=== PATIENT | male | born 1955 | race Two or more races ===

== ENCOUNTER 2018-03-06 08:51 | Day surgery (SDC) | payer BC ==
[2018-03-06] MEDS ORDERED: FENTAnyl 50 MCG/ML VIAL (11:27)
[2018-03-06] MEDS ORDERED: MIDAZOLAM 1 MG/ML 2 ML INJ (11:27)
[2018-03-06] MEDS ORDERED: PROPOFOL 20 ML (11:27)
== END 2018-03-06 13:32 | disposition home or self-care (01) ==
LOC: GIL 08:51
DX: Z12.11 Encounter for screening for malignant neoplasm of colon (principal); K64.4 Residual hemorrhoidal skin tags; I10 Essential (primary) hypertension
CPT/HCPCS: 45378

== ENCOUNTER 2018-05-22 16:53 | Inpatient (IN) | payer BC ==
[2018-05-22] MEDS ORDERED: ZOLPIDEM 5 MG TAB PO (18:30)
[2018-05-22] MEDS ORDERED: ONDANSETRON 4 MG TAB PO (18:30)
[2018-05-22] MEDS ORDERED: ALUMINUM HYDROXIDE 30 ML CUP PO (18:30)
[2018-05-22] MEDS ORDERED: ONDANSETRON 4 MG INJ IV (18:30)
[2018-05-22] MEDS ORDERED: CALCIUM CARBONATE 500 MG CHEW TAB PO (18:30)
[2018-05-22] MEDS ORDERED: SENNA TAB PO (18:30)
[2018-05-22] MEDS ORDERED: DOCUSATE SODIUM 100 MG CAP PO (18:30)
[2018-05-22] MEDS ORDERED: VANCOMYCIN IV PER PHARMACY XX (18:30)
[2018-05-22] MEDS ORDERED: VANCOMYCIN 750 MG in SOD CHLORIDE 0.9% 150 ML IVPB (18:30)
[2018-05-22] MEDS ORDERED: ACETAMINOPHEN 325 MG TAB PO (18:30)
[2018-05-22] MEDS ORDERED: HEPARIN 1000 UNITS/ML 10 ML INJ IV ×2 (19:00)
[2018-05-22 19:50] LABS: ADD MAN DIFF? NO
[2018-05-22 19:52] LABS: WHITE BLOOD COUNT 8.4 10^3/ul (4.8-10.8)
[2018-05-22 19:52] LABS: BASOPHIL # 0.1 10^3/ul (0.0-0.1); BASOPHILS % 0.8 % (0.0-2.0); EOSINOPHILS # 0.2 10^3/ul (0.0-0.5); EOSINOPHILS % 1.9 % (0.0-7.0); HEMATOCRIT 33.5 % (42.0-52.0); HEMOGLOBIN 11.3 g/dl (14.0-18.0); LYMPHOCYTES # 2.3 10^3/ul (0.8-2.9); MEAN CORPUSCULAR HEMOGLOBIN 30.4 pg (29.0-33.0); MEAN CORPUSCULAR HGB CONC 33.7 g/dl (32.0-37.0); MEAN CORPUSCULAR VOLUME 90.1 fl (82.0-101.0); MONOCYTE # 0.6 10^3/ul (0.3-0.9); MONOCYTES % 6.5 % (0.0-11.0); NEUTROPHIL # 5.2 10^3/ul (1.6-7.5); NEUTROPHILS % 61.3 % (39.0-77.0); PLATELET COUNT 522 10^3/UL (140-415); RED BLOOD COUNT 3.72 10^6/ul (4.70-6.10); RED CELL DISTRIBUTION WIDTH 13.2 % (11.5-14.5)
[2018-05-22 20:10] LABS: INR 1.07; PT RATIO 1.1
[2018-05-22 20:25] LABS: PARTIAL THROMBOPLASTIN TIME 101.8 Sec (25.0-35.0)
[2018-05-22] MEDS: HEPARIN 25000 UNITS/250 ML 250 ML IV (20:57)
[2018-05-22] MEDS: PIPER-TAZO 3.375 GM IV (PMX) 100 ML IVPB (21:20)
[2018-05-22] MEDS: FAMOTIDINE 20 MG INJ IV (21:20)
[2018-05-22] MEDS: DEXTROSE 5%-0.9% NACL 1,000 ML IV (21:21)
[2018-05-22] MEDS ORDERED: VANCOMYCIN 1 GM 250 ML IVPB (21:30)
[2018-05-22] MEDS: VANCOMYCIN 1 GM 250 ML IVPB (21:59)
[2018-05-23 03:29] LABS: ALANINE AMINOTRANSFERASE 88 IU/L (13-69); ALBUMIN 3.7 g/dl (3.3-4.9); ALBUMIN/GLOBULIN RATIO 0.94; ALKALINE PHOSPHATASE 170 IU/L (42-121); ANION GAP 15 (8-16); ASPARTATE AMINO TRANSFERASE 64 IU/L (15-46); BILIRUBIN,INDIRECT 0.7 mg/dl (0-1.1); BILIRUBIN,TOTAL 0.7 mg/dl (0.2-1.3); BLOOD UREA NITROGEN 4 mg/dl (7-20); CALCIUM 9.3 mg/dl (8.4-10.2); CARBON DIOXIDE 22 mmol/L (21-31); CHLORIDE 110 mmol/L (97-110); CREATININE 0.96 mg/dl (0.61-1.24); GLUCOSE 121 mg/dl (70-220); POTASSIUM 3.5 mmol/L (3.5-5.1); SODIUM 143 mmol/L (135-144); TOTAL PROTEIN 7.6 g/dl (6.1-8.1)
[2018-05-23 03:46] LABS: PARTIAL THROMBOPLASTIN TIME 86.4 Sec (25.0-35.0)
[2018-05-23] MEDS: DEXTROSE 5%-0.9% NACL 1,000 ML IV ×2 (04:53→14:30)
[2018-05-23] MEDS: PIPER-TAZO 3.375 GM IV (PMX) 100 ML IVPB ×3 (06:04→21:18)
[2018-05-23] MEDS: FAMOTIDINE 20 MG INJ IV ×2 (10:20→20:03)
[2018-05-23] MEDS: VANCOMYCIN 1 GM 250 ML IVPB ×2 (10:21→21:54)
[2018-05-23 11:11] LABS: PARTIAL THROMBOPLASTIN TIME 120.5 Sec (25.0-35.0)
[2018-05-23] MEDS: HEPARIN 25000 UNITS/250 ML 250 ML IV (11:51)
[2018-05-23 16:45] LABS: PARTIAL THROMBOPLASTIN TIME 79.3 Sec (25.0-35.0)
[2018-05-23] MEDS: morphine 2 MG INJ IV (20:03)
[2018-05-23 22:56] LABS: PARTIAL THROMBOPLASTIN TIME 93.8 Sec (25.0-35.0)
[2018-05-24] MEDS: DEXTROSE 5%-0.9% NACL 1,000 ML IV ×4 (00:30→20:22)
[2018-05-24] MEDS: PIPER-TAZO 3.375 GM IV (PMX) 100 ML IVPB ×3 (05:49→21:03)
[2018-05-24 07:28] LABS: ADD MAN DIFF? NO
[2018-05-24 07:34] LABS: WHITE BLOOD COUNT 6.8 10^3/ul (4.8-10.8)
[2018-05-24 07:34] LABS: BASOPHIL # 0.1 10^3/ul (0.0-0.1); BASOPHILS % 1.2 % (0.0-2.0); EOSINOPHILS # 0.2 10^3/ul (0.0-0.5); EOSINOPHILS % 2.5 % (0.0-7.0); HEMATOCRIT 32.6 % (42.0-52.0); HEMOGLOBIN 10.8 g/dl (14.0-18.0); LYMPHOCYTES # 1.8 10^3/ul (0.8-2.9); LYMPHOCYTES % 25.7 % (15.0-51.0); MEAN CORPUSCULAR HEMOGLOBIN 29.8 pg (29.0-33.0); MEAN CORPUSCULAR HGB CONC 33.1 g/dl (32.0-37.0); MEAN CORPUSCULAR VOLUME 89.8 fl (82.0-101.0); MONOCYTE # 0.5 10^3/ul (0.3-0.9); MONOCYTES % 7.6 % (0.0-11.0); NEUTROPHIL # 4.1 10^3/ul (1.6-7.5); NEUTROPHILS % 60.4 % (39.0-77.0); PLATELET COUNT 522 10^3/UL (140-415); RED BLOOD COUNT 3.63 10^6/ul (4.70-6.10); RED CELL DISTRIBUTION WIDTH 13.9 % (11.5-14.5)
[2018-05-24 07:50] LABS: PHOSPHORUS 3.7 mg/dl (2.5-4.9)
[2018-05-24 07:50] LABS: MAGNESIUM 2.2 mg/dl (1.7-2.5)
[2018-05-24 07:53] LABS: ALANINE AMINOTRANSFERASE 73 IU/L (13-69); ALBUMIN 3.3 g/dl (3.3-4.9); ALKALINE PHOSPHATASE 137 IU/L (42-121); AMYLASE 88 U/L (11-123); ASPARTATE AMINO TRANSFERASE 46 IU/L (15-46); BILIRUBIN,INDIRECT 0.6 mg/dl (0-1.1); BILIRUBIN,TOTAL 0.6 mg/dl (0.2-1.3); LIPASE 748 U/L (23-300); TOTAL PROTEIN 6.7 g/dl (6.1-8.1)
[2018-05-24 07:57] LABS: ALANINE AMINOTRANSFERASE 70 IU/L (13-69); ALBUMIN 3.4 g/dl (3.3-4.9); ALBUMIN/GLOBULIN RATIO 0.91; ALKALINE PHOSPHATASE 137 IU/L (42-121); ANION GAP 10 (8-16); ASPARTATE AMINO TRANSFERASE 48 IU/L (15-46); BILIRUBIN,INDIRECT 0.6 mg/dl (0-1.1); BILIRUBIN,TOTAL 0.6 mg/dl (0.2-1.3); BLOOD UREA NITROGEN 4 mg/dl (7-20); CALCIUM 8.9 mg/dl (8.4-10.2); CARBON DIOXIDE 24 mmol/L (21-31); CHLORIDE 113 mmol/L (97-110); CREATININE 1.17 mg/dl (0.61-1.24); GLUCOSE 132 mg/dl (70-220); POTASSIUM 3.4 mmol/L (3.5-5.1); SODIUM 144 mmol/L (135-144); TOTAL PROTEIN 7.1 g/dl (6.1-8.1)
[2018-05-24] MEDS: FAMOTIDINE 20 MG INJ IV ×2 (09:00→20:30)
[2018-05-24 09:58] LABS: VANCOMYCIN,TROUGH 13.3 ug/ml (10.0-20.0)
[2018-05-24] MEDS: POTASSIUM CHLORIDE 100 ML IVPB ×2 (12:15→15:16)
[2018-05-24] MEDS: VANCOMYCIN 1 GM 250 ML IVPB (12:15)
[2018-05-24 14:43] LABS: LACTIC ACID 2.4 mmol/L (0.5-2.0)
[2018-05-24 14:45] LABS: PARTIAL THROMBOPLASTIN TIME 56.1 Sec (25.0-35.0)
[2018-05-24] MEDS: HEPARIN 1000 UNITS/ML 10 ML INJ IV (15:17)
[2018-05-24] MEDS: HEPARIN 25000 UNITS/250 ML 250 ML IV ×2 (15:24→21:37)
[2018-05-24 19:33] LABS: PARTIAL THROMBOPLASTIN TIME 150.4 Sec (25.0-35.0)
[2018-05-24 20:43] LABS: PARTIAL THROMBOPLASTIN TIME 108.4 Sec (25.0-35.0)
[2018-05-25] MEDS: VANCOMYCIN 1 GM 250 ML IVPB ×2 (00:06→11:59)
[2018-05-25 04:59] LABS: ADD MAN DIFF? NO
[2018-05-25 05:02] LABS: WHITE BLOOD COUNT 7.4 10^3/ul (4.8-10.8)
[2018-05-25 05:02] LABS: BASOPHIL # 0.1 10^3/ul (0.0-0.1); BASOPHILS % 1.1 % (0.0-2.0); EOSINOPHILS # 0.2 10^3/ul (0.0-0.5); EOSINOPHILS % 2.8 % (0.0-7.0); HEMATOCRIT 30.4 % (42.0-52.0); HEMOGLOBIN 10.1 g/dl (14.0-18.0); LYMPHOCYTES % 26.4 % (15.0-51.0); MEAN CORPUSCULAR HEMOGLOBIN 30.1 pg (29.0-33.0); MEAN CORPUSCULAR HGB CONC 33.2 g/dl (32.0-37.0); MEAN CORPUSCULAR VOLUME 90.7 fl (82.0-101.0); MEAN PLATELET VOLUME 9.1 fl (7.4-10.4); MONOCYTE # 0.5 10^3/ul (0.3-0.9); MONOCYTES % 6.2 % (0.0-11.0); NEUTROPHIL # 4.6 10^3/ul (1.6-7.5); NEUTROPHILS % 62.3 % (39.0-77.0); PLATELET COUNT 523 10^3/UL (140-415); RED BLOOD COUNT 3.35 10^6/ul (4.70-6.10); RED CELL DISTRIBUTION WIDTH 13.9 % (11.5-14.5)
[2018-05-25 05:30] LABS: PARTIAL THROMBOPLASTIN TIME 49.8 Sec (25.0-35.0)
[2018-05-25 05:31] LABS: ANION GAP 10 (8-16); BLOOD UREA NITROGEN 5 mg/dl (7-20); CALCIUM 8.8 mg/dl (8.4-10.2); CARBON DIOXIDE 23 mmol/L (21-31); CHLORIDE 111 mmol/L (97-110); CREATININE 1.04 mg/dl (0.61-1.24); GLUCOSE 120 mg/dl (70-220); POTASSIUM 3.1 mmol/L (3.5-5.1); SODIUM 141 mmol/L (135-144)
[2018-05-25] MEDS: DEXTROSE 5%-0.9% NACL 1,000 ML IV ×3 (05:31→21:30)
[2018-05-25] MEDS: PIPER-TAZO 3.375 GM IV (PMX) 100 ML IVPB ×3 (05:32→21:24)
[2018-05-25 05:37] LABS: LACTIC ACID 0.8 mmol/L (0.5-2.0)
[2018-05-25] MEDS: HEPARIN 1000 UNITS/ML 10 ML INJ IV (06:25)
[2018-05-25] MEDS: HEPARIN 25000 UNITS/250 ML 250 ML IV ×2 (06:25→13:45)
[2018-05-25] MEDS: FAMOTIDINE 20 MG INJ IV ×2 (08:40→21:24)
[2018-05-25] MEDS: POTASSIUM CHLORIDE 100 ML IVPB ×2 (11:56→13:45)
[2018-05-25 13:23] LABS: PARTIAL THROMBOPLASTIN TIME 94.1 Sec (25.0-35.0)
[2018-05-25 19:43] LABS: PARTIAL THROMBOPLASTIN TIME 91.7 Sec (25.0-35.0)
[2018-05-26] MEDS: VANCOMYCIN 1 GM 250 ML IVPB ×2 (00:27→11:37)
[2018-05-26] MEDS: DEXTROSE 5%-0.9% NACL 1,000 ML IV ×3 (02:02→21:30)
[2018-05-26] MEDS: PIPER-TAZO 3.375 GM IV (PMX) 100 ML IVPB ×3 (05:16→21:29)
[2018-05-26] MEDS: FAMOTIDINE 20 MG INJ IV ×2 (08:01→21:21)
[2018-05-26 08:46] LABS: PARTIAL THROMBOPLASTIN TIME 76.7 Sec (25.0-35.0)
[2018-05-26 09:56] LABS: POTASSIUM 3.4 mmol/L (3.5-5.1)
[2018-05-26] MEDS ORDERED: POTASSIUM CHLORIDE 20 MEQ POWDER FOR ORAL SOLN PO (11:00)
[2018-05-26] MEDS: POTASSIUM CHLORIDE 100 ML IVPB (11:38)
[2018-05-27] MEDS: PIPER-TAZO 3.375 GM IV (PMX) 100 ML IVPB ×2 (05:53→14:18)
[2018-05-27] MEDS ORDERED: LIDOCAINE 2% (SDV) 5 ML INJ (07:00)
[2018-05-27 08:39] LABS: ADD MAN DIFF? NO
[2018-05-27 08:44] LABS: WHITE BLOOD COUNT 6.8 10^3/ul (4.8-10.8)
[2018-05-27 08:44] LABS: BASOPHIL # 0.1 10^3/ul (0.0-0.1); BASOPHILS % 1.2 % (0.0-2.0); EOSINOPHILS # 0.1 10^3/ul (0.0-0.5); EOSINOPHILS % 1.9 % (0.0-7.0); HEMATOCRIT 34.3 % (42.0-52.0); HEMOGLOBIN 11.5 g/dl (14.0-18.0); LYMPHOCYTES # 1.5 10^3/ul (0.8-2.9); LYMPHOCYTES % 22.4 % (15.0-51.0); MEAN CORPUSCULAR HEMOGLOBIN 30.7 pg (29.0-33.0); MEAN CORPUSCULAR HGB CONC 33.5 g/dl (32.0-37.0); MEAN CORPUSCULAR VOLUME 91.5 fl (82.0-101.0); MEAN PLATELET VOLUME 8.7 fl (7.4-10.4); MONOCYTE # 0.4 10^3/ul (0.3-0.9); NEUTROPHIL # 4.6 10^3/ul (1.6-7.5); NEUTROPHILS % 68.1 % (39.0-77.0); PLATELET COUNT 505 10^3/UL (140-415); RED BLOOD COUNT 3.75 10^6/ul (4.70-6.10); RED CELL DISTRIBUTION WIDTH 14.3 % (11.5-14.5)
[2018-05-27 09:02] LABS: PARTIAL THROMBOPLASTIN TIME 30.7 Sec (25.0-35.0)
[2018-05-27 09:05] LABS: LIPASE 598 U/L (23-300)
[2018-05-27 09:08] LABS: ANION GAP 13 (8-16)
[2018-05-27 09:09] LABS: BLOOD UREA NITROGEN 6 mg/dl (7-20); CALCIUM 9.4 mg/dl (8.4-10.2); CARBON DIOXIDE 22 mmol/L (21-31); CHLORIDE 112 mmol/L (97-110); CREATININE 1.35 mg/dl (0.61-1.24); GLUCOSE 131 mg/dl (70-220); POTASSIUM 3.6 mmol/L (3.5-5.1); SODIUM 143 mmol/L (135-144)
[2018-05-27] MEDS: FAMOTIDINE 20 MG INJ IV ×2 (09:10→21:00)
[2018-05-27] MEDS: morphine 2 MG INJ IV (09:11)
[2018-05-27] MEDS: PROPOFOL 20 ML (16:27)
[2018-05-27] MEDS ORDERED: EPHEDrine SULFATE 50 MG/5 ML SYG IV (17:00)
[2018-05-27] MEDS: FENTAnyl 50 MCG/ML VIAL IV (17:00)
[2018-05-27] MEDS ORDERED: OXYCODONE/ACETAMINOPHEN (5/325) TAB PO (17:00)
[2018-05-27] MEDS ORDERED: FENTAnyl 50 MCG/ML VIAL IV (17:00)
[2018-05-27] MEDS ORDERED: ONDANSETRON 4 MG INJ IV (17:00)
[2018-05-27] MEDS ORDERED: hydrALAzine 20 MG INJ IV (17:00)
[2018-05-27] MEDS ORDERED: LABETALOL HCL 20MG INJ IV (17:00)
[2018-05-27] MEDS ORDERED: METOCLOPRAMIDE 10 MG INJ IV (17:00)
[2018-05-27] MEDS ORDERED: DIPHENHYDRAMINE 50 MG INJ IV (17:00)
[2018-05-27] MEDS: DEXTROSE 5%-0.9% NACL 1,000 ML IV (18:04)
[2018-05-27] MEDS: APIXABAN 5 MG TABLET PO (21:00)
[2018-05-28] MEDS: DEXTROSE 5%-0.9% NACL 1,000 ML IV ×3 (02:19→23:59)
[2018-05-28 08:41] LABS: ALANINE AMINOTRANSFERASE 43 IU/L (13-69); ALBUMIN 3.5 g/dl (3.3-4.9); ALKALINE PHOSPHATASE 100 IU/L (42-121); ASPARTATE AMINO TRANSFERASE 26 IU/L (15-46); BILIRUBIN,INDIRECT 0.5 mg/dl (0-1.1); BILIRUBIN,TOTAL 0.5 mg/dl (0.2-1.3); LIPASE 579 U/L (23-300); TOTAL PROTEIN 7.2 g/dl (6.1-8.1)
[2018-05-28] MEDS: APIXABAN 5 MG TABLET PO ×2 (09:09→20:13)
[2018-05-28] MEDS: FAMOTIDINE 20 MG INJ IV ×2 (09:09→20:13)
[2018-05-29 08:30] LABS: ADD MAN DIFF? NO
[2018-05-29 08:34] LABS: WHITE BLOOD COUNT 6.7 10^3/ul (4.8-10.8)
[2018-05-29 08:34] LABS: BASOPHIL # 0.1 10^3/ul (0.0-0.1); BASOPHILS % 0.7 % (0.0-2.0); EOSINOPHILS # 0.2 10^3/ul (0.0-0.5); EOSINOPHILS % 2.2 % (0.0-7.0); HEMOGLOBIN 11.2 g/dl (14.0-18.0); LYMPHOCYTES # 1.6 10^3/ul (0.8-2.9); LYMPHOCYTES % 23.5 % (15.0-51.0); MEAN CORPUSCULAR HEMOGLOBIN 29.9 pg (29.0-33.0); MEAN CORPUSCULAR VOLUME 93.3 fl (82.0-101.0); MONOCYTE # 0.4 10^3/ul (0.3-0.9); NEUTROPHIL # 4.5 10^3/ul (1.6-7.5); PLATELET COUNT 468 10^3/UL (140-415); RED BLOOD COUNT 3.75 10^6/ul (4.70-6.10); RED CELL DISTRIBUTION WIDTH 14.6 % (11.5-14.5)
[2018-05-29] MEDS: APIXABAN 5 MG TABLET PO (08:44)
[2018-05-29] MEDS: FAMOTIDINE 20 MG INJ IV (08:45)
[2018-05-29 08:58] LABS: ALANINE AMINOTRANSFERASE 41 IU/L (13-69); ALBUMIN/GLOBULIN RATIO 1.05; ALKALINE PHOSPHATASE 104 IU/L (42-121); ANION GAP 14 (8-16); ASPARTATE AMINO TRANSFERASE 30 IU/L (15-46); BILIRUBIN,INDIRECT 0.5 mg/dl (0-1.1); BILIRUBIN,TOTAL 0.5 mg/dl (0.2-1.3); BLOOD UREA NITROGEN 7 mg/dl (7-20); CALCIUM 9.4 mg/dl (8.4-10.2); CARBON DIOXIDE 25 mmol/L (21-31); CHLORIDE 105 mmol/L (97-110); CREATININE 1.11 mg/dl (0.61-1.24); GLUCOSE 191 mg/dl (70-220); LIPASE 789 U/L (23-300); POTASSIUM 3.4 mmol/L (3.5-5.1); SODIUM 141 mmol/L (135-144); TOTAL PROTEIN 7.8 g/dl (6.1-8.1)
[2018-05-29] MEDS: POTASSIUM CHLORIDE (SR) 20 MEQ TAB PO (13:24)
[2018-05-29] MEDS ORDERED: APIXABAN 5 MG TABLET PO (21:00)
[2018-06-05] MEDS ORDERED: APIXABAN 5 MG TABLET PO (09:00)
== END 2018-05-29 13:54 | disposition home or self-care (01) | DRG 441 ==
LOC: 6WM 05-29 11:16 → MS4 16:53
PROVIDERS: Internal Medicine Nephrology
PROC: 0DJ08ZZ Inspection of Upper Intestinal Tract, Via Natural or Artificial Opening Endoscopic (ICD-10-PCS; principal; 2018-05-27 16:00)
DX: I81 Portal vein thrombosis (principal); K85.90 Acute pancreatitis without necrosis or infection, unspecified; I10 Essential (primary) hypertension; Z79.02 Long term (current) use of antithrombotics/antiplatelets; D64.9 Anemia, unspecified; E87.6 Hypokalemia; D47.3 Essential (hemorrhagic) thrombocythemia; K29.70 Gastritis, unspecified, without bleeding
CPT/HCPCS: 74181; 80048; 80053; 80076; 80202; 82150; 83605; 83690; 83735; 84100; 84132; 85025; 85610; 85730; 87040